=== PATIENT | female | born 1990 | race Caucasian/White ===

== ENCOUNTER 2017-02-06 00:48 | Emergency (ER) | payer MEDICARE, OTHER ==
[~2017-02-06] VITALS: Ht 165.1 cm; Wt 65.0 kg
[2017-02-06 00:48] VITALS: BP 128/72; PULSE 114; RESP 16; TEMP 98.4; O2SAT 98
[~2017-02-06 00:48] MED LIST: LEVA3NEB7 NEB; PREN0.01 PO
--- NOTE | 2017-02-06 01:00 | PD ---
HPI Chief Complaint: fall Time Seen by Provider: 00:54 Travel History International Travel<30 days: No Contact w/Intl Traveler<30days: No History of Present Illness HPI 27-year-old female presents status post fall while she was dancing where she hit her head. She did not black out. She also caught her left hand on the way down. She denies pain anywhere else. She notes a bump on her head. Fall was from standing. She denies specific modifying factors. PFSH Past Medical History Arthritis: No Asthma: Yes Autoimmune Disease: No Heart Rhythm Problems: No Cancer: No Cardiovascular Problems: No High Cholesterol: No Chemotherapy: No Chest Pain: No Congestive Heart Failure: No COPD: No Cerebrovascular Accident: No Diabetes: No Endocrine: No GERD: No Glaucoma: No Genitourinary: No Headaches: No Hepatitis: No Hiatal Hernia: No Hypertension: No Immune Disorder: No Kidney Stones: No Musculoskeletal: No Neurologic: No Respiratory: Yes Myocardial Infarction: No Radiation Therapy: No Renal Failure: No Seizures: No Sleep Apnea: No Thyroid Disease: No Ulcer: No Past Surgical History Abdominal Surgery: Yes (APPENDECTOMY) AICD: No Cardiac Surgery: No Ear Surgery: No Endocrine Surgery: No Eye Surgery: No Genitourinary Surgery: No Gynecologic Surgery: No Joint Replacement: No Oral Surgery: No Pacemaker: No Thoracic Surgery: No Social History Alcohol Use: No Tobacco Use: Yes (patient quit tobacco early in her ) Substance Use: No Allergies-Medications (Allergen,Severity, Reaction): Coded Allergies: No Known Allergies (Verified Allergy, Mild, 06/20/05) Banana (Verified Allergy, Unknown, CAN'T BREATHE, 06/20/05) Uncoded Allergies: STRAWBERRIES (Allergy, Unknown, RESP DISTRESS, 06/20/05) Reported Meds & Prescriptions Reported Meds & Active Scripts Active Reported Xopenex (Levalbuterol HCl) 1.25 Mg/3 Ml Neb 1.25 Mg NEB Vit ( Plus) (Prenat Multivit/[place]/Iron/Folic Ac) Tab 1 Tab PO DAILY Review of Systems Except as stated in HPI: all other systems reviewed are Neg Physical Exam Narrative General: 27 y/o patient in no apparent distress Skin: trauma noted to left top of head with abrasion Eyes: pupils equal, eomi ENT: no septal hematoma NECK: no pain with ROM in midline and with palpation Cardiovascular: Regular rate and rhythm Respiratory: normal respiratory effort noted, clear to auscultation bilaterally Abdomen: soft, nontender, nondistended Back: No step-offs, midline spine nontender with palpation Extremities: Pain with palpation of left middle and 5th digits, no lacerations over, neurovascularly intact, no pain with rom of other joints Neuro: awake, alert, sensation and motor grossly intact Data Data Last Documented VS Vital Signs Date Time Temp Pulse Resp B/P Pulse Ox O2 Delivery O2 Flow Rate FiO2 02/06/17 00:48 98.4 114 16 128/72 98 Orders Hand, Complete ([id number]) (02/06/17 ) Ct Brain W/O Iv Contrast(Rout) (02/06/17 ) MDM Medical Decision Making Medical Screen Exam Complete: Yes Emergency Medical Condition: Yes Medical Record Reviewed: Yes ([facility] confirmed) Interpretation(s) hand xray no fracture ct head no acute Differential Diagnosis bleed, fracture, strain Narrative Course will check imaging and reevaluate ed workup no acute, Patient denies any new complaints and states that they are feeling better. Patient happy with care, all questions answered. Patient knows that follow up is incumbent on them and to return to the emergency room immediately if new or worsening symptoms develop. Patient given strict return precautions, vitals reviewed and are normal, agrees to further workup as an outpatient. Steady gait, clear speech, someone here to watch over her and drive her home Diagnosis Primary Impression: Fall Qualified Code: W19.XXXA - Fall, initial encounter Additional Impressions: Abrasion of scalp Qualified Code: S00.01XA - Abrasion of scalp, initial encounter Hand contusion Qualified Code: S60.222A - Contusion of left hand, initial encounter Patient Instructions: General Instructions Additional Instructions: return as needed, follow with primary this week for recheck, tylenol as needed Med/Other Pt SpecificInfo: No Change to Meds Disposition: DISCHARGE HOME Condition: Stable Tiffanie Miramontes MD Feb 06, 2017 01:00 Tiffanie Miramontes MD Feb 06, 2017 01:00
--- NOTE | 2017-02-06 02:01 | RADRPT ---
EXAM DATE/TIME: 02/06/2017 01:25 [facility] COMPARISON: No previous studies available for comparison. INDICATIONS : Trauma; fall. ETOH. RADIATION DOSE: 56.35 CTDIvol (mGy) MEDICAL HISTORY : None SURGICAL HISTORY : None. ENCOUNTER: Initial ACUITY: 1 day PAIN SCALE: 3/10 LOCATION: cranial TECHNIQUE: Multiple contiguous axial images were obtained of the head. Using automated exposure control and adj ustment of the mA and/or kV according to patient size, radiation dose was kept as low as reasonably a chievable to obtain optimal diagnostic quality images. DICOM format image data is available electro nically for review and comparison. FINDINGS: CEREBRUM: The ventricles are normal for age. No evidence of midline shift, mass lesion, hemorrhage or acute in farction. No extra-axial fluid collections are seen. POSTERIOR FOSSA: The cerebellum and brainstem are intact. The 4th ventricle is midline. The cerebellopontine angle i s unremarkable. EXTRACRANIAL: The visualized portion of the orbits is intact. SKULL: The calvaria is intact. No evidence of skull fracture. CONCLUSION: 1. No evidence of acute intracranial pathology. No masses are identified. Hossein Kumar MD on February 06, 2017 at 1:59 Board Certified Radiologist. This report was verified electronically.
--- NOTE | 2017-02-06 02:01 | RADRPT ---
EXAM DATE/TIME: 02/06/2017 01:16 [facility] COMPARISON: No previous studies available for comparison. INDICATIONS : Fall. Right hand pain. MEDICAL HISTORY : None. SURGICAL HISTORY : None. ENCOUNTER: Initial ACUITY: 1 day PAIN SCORE: 8/10 LOCATION: Right upper extremity FINDINGS: Three view examination of the right hand demonstrates no soft tissue swelling, dislocation, or fractu re. The carpal bones appear intact. The interphalangeal and metacarpophalangeal joints are intact. Bony mineralization is normal.CONCLUSION: 1. There is no evidence of acute fracture. Hossein Kumar MD on February 06, 2017 at 1:57 Board Certified Radiologist. This report was verified electronically.
== END 2017-02-06 02:09 | disposition home or self-care (01) ==
LOC: NEPC 01:10
DX: S00.01XA Abrasion of scalp, initial encounter (principal); S60.222A Contusion of left hand, initial encounter; W19.XXXA Unspecified fall, initial encounter; Y93.41 Activity, dancing
CPT/HCPCS: 70450; 73130; 99284